=== PATIENT | female | born 1945 | race Two or more races ===

== ENCOUNTER 2020-07-12 12:31 | Outpatient (CLI) | payer OTHER | END 2020-07-12 12:56 | disposition home or self-care (01) | LOC: SONOGRAMA 12:31 | PROVIDERS: ATTEND Pathology Anatomic Pathology & Clinical Pathology | DX: E04.2 Nontoxic multinodular goiter (principal); E07.89 Other specified disorders of thyroid; D34 Benign neoplasm of thyroid gland; E04.8 Other specified nontoxic goiter ==

== ENCOUNTER → 2020-08-30 | Outpatient (CLI) | payer OTHER | END | disposition home or self-care (01) | LOC: OFIC 805 10:18 | PROVIDERS: ATTEND Otolaryngology | DX: K21.9 Gastro-esophageal reflux disease without esophagitis (principal); E04.1 Nontoxic single thyroid nodule; R09.89 Other specified symptoms and signs involving the circulatory and respiratory systems ==